=== PATIENT | male | born 1935 | race Caucasian/White ===

== ENCOUNTER 2025-09-19 13:13 | Emergency (ER) | payer MEDICARE, OTHER ==
[2025-09-19] MEDS ORDERED: Ketorolac Tromethamine 30 MG (1 mL) VIAL ONE (14:42)
[2025-09-19 14:58] LABS: #Basophils 0.09 10x3/uL (0.0-0.2); #Eosinophils 0.36 10x3/uL (0.0-0.7); #Monocytes 1.83 10x3/uL (0.11-0.59); #Neutrophils 9.85 10x3/uL (1.40-6.50); %Basophils 0.7 % (0.0-1.0); %Eosinophils 2.6 % (0.0-10.0); %Lymphocytes 10.1 % (21.0-51.0); %Monocytes 13.4 % (0.0-10.0); %Neutrophils 71.9 % (42.0-75.0); Hematocrit 40.0 % (42.0-52.0); Hemoglobin 12.9 g/dL (14.0-18.0); Mean Corpuscular Hemoglobin 25.9 pg (27.0-31.0); Mean Corpuscular Volume 80.3 fL (78.0-98.0); Platelet Count 246 10x3/uL (130-400); Red Blood Cell (RBC) Count 4.98 mill/uL (4.70-6.10); White Blood Cell (WBC) Count 13.70 10x3/uL (4.8-10.8)
[2025-09-19 15:16] LABS: ALT (SGPT) 121 U/L (Less than 45); AST (SGOT) 100 U/L (11-34); Albumin 3.6 g/dL (3.1-4.5); Alkaline Phosphatase 208 U/L (40-110); Anion Gap 16 mmol/L (10-20); BUN (Urea Nitrogen) 29 mg/dL (8.4-25.7); Bilirubin, Total 0.4 mg/dL (0.3-1.2); Calc. Creatinine Clearance 0 mL/min (70-130); Calcium 9.4 mg/dL (7.8-10.44); Carbon Dioxide 25 mmol/L (23-31); Chloride 100 mmol/L (98-107); Globulin 3.7 g/dL (2.4-3.5); Glucose 182 mg/dL (83-110); Lipase 35 U/L (8-78); Potassium 3.4 mmol/L (3.5-5.1); Sodium 138 mmol/L (136-145); Uric Acid 6.4 mg/dL (3.7-7.7)
[2025-09-19 15:19] LABS: INR-International Normal Ratio 1.1; PTT 37.0 sec (22.9-36.1); Prothrombin Time 14.7 sec (12.0-14.7)
[2025-09-19 18:25] LABS: RBC Count-Automated (BF) 1196 /cu.mm; WBC/Nucleated-Auto (BF) 1808 /cu.mm
[2025-09-19] MEDS ORDERED: predniSONE 20 MG TAB ONE (18:46)
[2025-09-19 18:51] LABS: BF Segmented Neutrophils 88 %; Cell Count Non Hematic 11 %
== END 2025-09-19 18:58 | disposition home or self-care (01) ==
LOC: ERS 13:13
DX: M10.9 Gout, unspecified (principal); I11.0 Hypertensive heart disease with heart failure; I50.9 Heart failure, unspecified; E11.9 Type 2 diabetes mellitus without complications; Z79.82 Long term (current) use of aspirin; Z79.899 Other long term (current) drug therapy
CPT/HCPCS: 73564; 80053; 83605; 83690; 83880; 84550; 85025; 85610; 85730; 87040; 87070; 87075; 87205; 89051; J1885; J3010; 20610; 85060; 96374; 96375; J7512